=== PATIENT | male | born 1940 | race African-American/Black ===

== ENCOUNTER 2021-06-23 15:33 | Emergency (ER) | payer OTHER ==
[~2021-06-23] VITALS: Ht 175.3 cm; Wt 78.9 kg
[2021-06-23 16:22] LABS: BASOPHILS % 0.4 % (0.0-2.0); CHLORIDE 110 mEq/L (98-107); EOSINOPHILS % 1.8 % (0.0-5.0); HEMATOCRIT. 35.2 % (42.0-52.0); HEMOGLOBIN. 11.9 g/dL (14.0-18.0); MEAN CORPUSCULAR HEMOGLOBIN 32.6 pg (28.0-32.0); MEAN CORPUSCULAR VOLUME 96.9 fL (80.0-94.0); MEAN PLATELET VOLUME 7.6 fl (7.4-10.4); MONOCYTES % 10.7 % (2.0-8.0); NEUTROPHILS % 43.1 % (40.0-76.0); PLATELET 122 x1000/uL (130-400); RED BLOOD CELL COUNT 3.64 mill/uL (4.7-6.1); RED CELL DISTRIBUTION WIDTH 15.2 % (11.6-14.6)
[2021-06-23] MEDS ORDERED: HEPARIN 25,000 UNITS PREMIX 250 ML IV PRN ×2 (17:00→21:45)
[2021-06-23] MEDS ORDERED: HEPARIN 5000 UNITS/ML VIAL IV SCH ×2 (17:00→21:45)
[2021-06-23] MEDS ORDERED: DEXT 5%/0.9% NACL 500 ML IV ONE (17:00)
[2021-06-23] MEDS ORDERED: HEPARIN 5000 UNITS/ML VIAL IV PRN ×4 (17:00→21:45)
[2021-06-23 17:21] LABS: INR 2.6; PARTIAL THROMBOPLASTIN TIME 34.6 sec (23.4-31.0); PROTHROMBIN TIME 26.1 sec (9.6-11.0)
[2021-06-23 20:54] LABS: CLARITY URINE CLEAR (CLEAR); COLOR URINE YELLOW (YELLOW); KETONES URINE TRACE (NEGATIVE); LEUKOCYTE ESTERASE URINE NEGATIVE (NEGATIVE); NITRITE URINE NEGATIVE (NEGATIVE); OCCULT BLOOD URINE TRACE (NEGATIVE); PROTEIN URINE NEGATIVE (NEGATIVE); SPECIFIC GRAVITY URINE 1.012 (1.005-1.030); UROBILINOGEN URINE 0.2 E.U./dL (0.2-1.0)
[2021-06-23] MEDS ORDERED: MAGNESIUM 1 G PREMIX 100 ML IV ONE (22:00)
[2021-06-24 00:33] VITALS: BP 133/67
[2021-06-24] MEDS ORDERED: HEPARIN 5000 UNITS/ML VIAL IV PRN ×2 (01:41→01:42)
== END 2021-06-24 00:33 | disposition short-term general hospital (02) ==
LOC: EDBD 15:33 → ER 15:33 → CANBEDREQ 06-24 12:34
DX: R55 Syncope and collapse (principal); I48.91 Unspecified atrial fibrillation; I82.403 Acute embolism and thrombosis of unspecified deep veins of lower extremity, bilateral; E11.9 Type 2 diabetes mellitus without complications
CPT/HCPCS: 36415; 70450; 71045; 80053; 81003; 83735; 83880; 84443; 84484; 85025; 85379; 85610; 85730; 93005; 93970; 96361; 96365; 96367; 99285; J1644; J3475; J7042

== ENCOUNTER 2024-09-02 17:55 | Emergency (ER) | payer OTHER ==
[~2024-09-02] VITALS: Ht 180.3 cm; Wt 85.0 kg
[2024-09-02 17:57] VITALS: TEMP 98.2; O2SAT 100
[2024-09-02] MEDS ORDERED: CALCIUM GLUCONATE 1GM PREMIX 50 ML IV ONE (18:15)
[2024-09-02] MEDS: SODIUM CHLORIDE 0.9% 1,000 ML IV ONE (18:57)
[2024-09-02] MEDS: CALCIUM GLUCONATE 1GM PREMIX 50 ML IV ONE (19:32)
[2024-09-02 19:55] LABS: BASOPHILS % 0.6 % (0.0-2.0); EOSINOPHILS % 0.1 % (0.0-5.0); HEMATOCRIT. 41.1 % (42.0-52.0); HEMOGLOBIN. 13.9 g/dL (14.0-18.0); LYMPHOCYTES % 14.6 % (20.0-50.0); MEAN CORPUSCULAR HEMOGLOBIN 32.7 pg (28.0-32.0); MEAN CORPUSCULAR HGB CONC 33.8 g/dL (31.0-37.0); MEAN CORPUSCULAR VOLUME 96.8 fL (80.0-94.0); MEAN PLATELET VOLUME 7.8 fl (7.4-10.4); MONOCYTES % 9.9 % (2.0-8.0); NEUTROPHILS % 74.8 % (40.0-76.0); PLATELET 241 x1000/uL (130-400); RED BLOOD CELL COUNT 4.24 mill/uL (4.7-6.1); RED CELL DISTRIBUTION WIDTH 14.7 % (11.6-14.6); WHITE BLOOD COUNT 4.4 x1000/uL (4.5-11.0)
[2024-09-02 19:57] LABS: DIFFERENTIAL COMMENT 1
[2024-09-02 20:01] LABS: CHLORIDE 100 mEq/L (98-107); POTASSIUM 4.9 mEq/L (3.5-5.1); SODIUM 135 mEq/L (136-145)
[2024-09-02 20:02] LABS: CALCIUM 10.7 mg/dL (8.7-10.4); CARBON DIOXIDE 23 mEq/L (21-32)
[2024-09-02 20:05] LABS: INR 2.3; PROTHROMBIN TIME 24.1 sec (9.6-11.0)
[2024-09-02 20:07] LABS: CREATININE 1.5 mg/dL (0.6-1.3); UREA NITROGEN BLOOD 16 mg/dL (9-23)
[2024-09-02 20:08] LABS: TROPONIN I HIGH SENSITIVITY 16 ng/L (3.0-53)
[2024-09-02 20:09] LABS: ALANINE AMINOTRANSFERASE 16 IU/L (10-49); ALBUMIN 4.8 g/dL (3.2-4.8); ASPARTATE AMINOTRANSFERASE 21 IU/L (<34); BILIRUBIN DIRECT 0.3 mg/dL (<=3.0); BILIRUBIN TOTAL 0.9 mg/dL (0.1-1.0)
[2024-09-02 20:14] LABS: CLARITY URINE CLEAR (CLEAR); COLOR URINE YELLOW (YELLOW); GLUCOSE URINE 3+ (NEGATIVE); KETONES URINE 1+ (NEGATIVE); LEUKOCYTE ESTERASE URINE NEGATIVE (NEGATIVE); NITRITE URINE NEGATIVE (NEGATIVE); OCCULT BLOOD URINE TRACE (NEGATIVE); PH URINE 7.5 (4.5-8.0); PROTEIN URINE 1+ (NEGATIVE); UROBILINOGEN URINE 0.2 E.U./dL (0.2-1.0)
[2024-09-02 20:20] LABS: GLUCOSE 342 mg/dL (70-105)
[2024-09-02 20:35] LABS: BACTERIA URINE TRACE; RBC URINE 0-2 /hpf (0-2); SQUAMOUS EPITHELIAL CELL URINE RARE /lpf (RARE/1+); WBC URINE 0-2 /hpf (0-2)
[2024-09-02] MEDS: LABETALOL 5MG/ML 4ML INJ IV ONE (21:00)
[2024-09-02 22:00] VITALS: BP 165/106; PULSE 73; RESP 20; O2SAT 100
[2024-09-02] MEDS: CEFTRIAXONE 1GM/50ML 50 ML IV ONE (22:27)
[2024-09-02] MEDS: DOXYCYCLINE 100MG/100ML 100 ML IV SCH (22:43)
== END 2024-09-03 00:57 | disposition admitted as inpatient to this hospital (09) ==
LOC: ER 17:55
DX: J18.9 Pneumonia, unspecified organism (principal); E11.65 Type 2 diabetes mellitus with hyperglycemia; I10 Essential (primary) hypertension; I25.2 Old myocardial infarction; E78.5 Hyperlipidemia, unspecified; Z88.6 Allergy status to analgesic agent
CPT/HCPCS: 80076; 80048; 81003; 83690; 85025; 85610; 84484; 36415; 71045; 74176; 93005; 96367; 96361; 96365; 96375; 99291; J0610; J0696; J3490 ×2; J7030